=== PATIENT | female | born 1950 | race Caucasian/White ===

== ENCOUNTER → 2021-03-23 11:08 | Outpatient (BNVA) | payer OTHER, SELFPAY | PROVIDERS: PCP Internal Medicine; Visit Provider Hospitalist ==

== ENCOUNTER → 2021-04-16 13:51 | Outpatient (REF) | payer OTHER, SELFPAY | LOC: HO.SL 13:51 | PROVIDERS: PCP Internal Medicine; Visit Provider Hospitalist | DX: G47.33 Obstructive sleep apnea (adult) (pediatric) (principal) | CPT/HCPCS: 95806 ==

== ENCOUNTER → 2021-05-14 14:33 | Outpatient (BNVA) | payer OTHER, SELFPAY | PROVIDERS: PCP Internal Medicine; Visit Provider Hospitalist ==

== ENCOUNTER 2025-01-11 13:07 | Outpatient (AMB) | payer OTHER, SELFPAY ==
--- NOTE | 2025-01-11 13:14 | A.OFFVIS_ITS ---
Vital Signs 01/11/25 13:15 Height 5 ft 6 in Weight 191 lb BMI 30.8 BP 118/68 Blood Pressure Location Lt brachial Position Sitting Pulse 67 Pulse Source Pulse Oximeter Pulse Oximetry (%) 97 Oxygen Delivery Method Room Air Intake Visit Reasons: Sleep apnea Physician Scientist Required: No Allergies No Known Allergies Allergy (Verified 01/11/25 13:18) HPI Comments Details: The patient is a 74-year-old woman with a known history of obstructive sleep apnea, asthma in addition to cardiac arrhythmias. She was diagnosed with CPAP many years ago and had been on CPAP. However she start using several years ago. She has been describing worsening daytime drowsiness. Her Birmingham score is elevated 24. She says she falls asleep all the time. In addition to that she recently has been having more issues with her heart. She has been diagnosed with atrial fibrillation and other cardiac arrhythmias. She is currently getting medical therapy for that. She used to get CPAP supplies through her [employer] company, [employer]. This point we did call [employer] and we confirmed that she is not active. With worsening daytime drowsiness and her worsening cardiac condition the patient needs to have a repeat sleep study in order to establish her again with the [employer] company and start her back on CPAP. In the meantime the patient also suffers from asthma. She has been stable for many years. She does have a rescue inhaler that she carries in case she needs to use it. Typically she does not use it more than twice a month or less. 05/14/2021 the patient is here for a pulmonary follow-up visit. She continues to have significant daytime drowsiness. She has also been noticing increasing palpitations and fluttering of her chest. She does follow up closely with cardiology. She did undergo a home sleep study. It demonstrated that she has severe sleep apnea with an AHI greater than 30. she understands the severity of this. She understands that untreated severe sleep apnea can result in significant cardiovascular and cerebrovascular disease. therefore, we will start her on APAP therapy as well as possible. The patient had been on CPAP in the past. However, now she understands the importance in the seriousness of the matter. In regards of her asthma the patient continues use her Advair inhaler. She has not require her short-acting beta agonist. She has not required her nebulizer therapy. She understands that she needs to minimize the use of beta agonists due to her significant atrial fibrillation. We did briefly review the home sleep study and did say that heart rate did increase to 196 beats per minute. But after looking at the data it appears that it may have been just an artifact a however, when she is situated with her PAP therapy we can always perform an overnight oximetry to make sure that that is stable. 01/11/2025 the patient is here coming in as a new patient again since it has been more than 4 years since the last appointment. She was initially set up with CPAP although she could not tolerate it well. She also has a history of asthma in atrial fibrillation. The patient's condition changed early in 2024 when she underwent an elective fusion of her back. Surgery went well but then after she developed pneumonia. After the pneumonia the patient developed worsening respiratory complaints and went back to the hospital sometime in November. She was diagnosed with congestive heart failure. At the time she did have a CT scan of the chest which was personally by me demonstrating mosaic pattern likely from her volume overload status and vascular congestion. In addition to that she had a 7 mm left-sided pulmonary nodule. I did compare the CAT scan to a previous CAT scan she had from 2022 which she did not have any nodular densities. Therefore this is a new finding. She is already scheduled to have a CT scan repeated 6 months from the last. In the meantime the patient to start using her CPAP. She does use [employer] in [place] for her supplies. For better with a nasal mask along with a chinstrap in order for her to start using her machine regularly. Will request additional supplies. Not sure if she is going to need another sleep study to get become active. She does have significant cardiovascular risk factors and therefore using the CPAP is very important. I did try to provide her fullface mask but I did not have 1 in the office so therefore he will she will try the nasal mask with chinstrap consider an F30 small. She has a hard time tolerating the fullface mask and altogether. The patient will come back in couple months with her CPAP machine so we can assess. She will continue using her respiratory inhalers as prescribed and if any issues arise she will call for an earlier assessment. [facility] Medical History (Updated 03/23/21 @ 12:30 by Faisal Gutierrez MD) Asthma NANCIE (obstructive sleep apnea) Atrial fibrillation Social History Patient Tobacco Use Status: Former Tobacco user Tobacco use type: Cigarette Years Smoked: 17 years Review of Systems Const Reports daytime sleepiness, Denies night sweats, Reports snoring and Reports stops breathing during sleep ENT Denies change in voice, Denies lip swelling, Denies mouth pain, Reports nasal congestion, Reports nasal discharge and Denies tongue swelling Card Denies chest pain, Reports irregular heart rhythm and Reports palpitations Resp Reports cough and Reports snoring GI Denies abdominal pain Musc Denies no additional complaints and Reports other (Raynaud's) Neuro Denies Neuro-related abnormal movements Psych Denies no additional complaints Endo Reports palpitations Gennaro/Lymph Denies easy bleeding and Denies lymphadenopathy Aller/Immun Denies lip swelling and Denies tongue swelling Physical Exam Vital Signs: Last Vital Signs Pulse 67 01/11/25 13:15 BP 118/68 01/11/25 13:15 Pulse Ox 97 01/11/25 13:15 Oxygen Delivery Method Room Air 01/11/25 13:15 BMI result Body Mass Index 30.8 Const General: alert Neck Neck: Yes normal visual inspection, Yes full ROM and Yes no lymphadenopathy Chest Chest palpation & inspection: normal inspection of the chest Resp Auscultation: diminished lung sounds Cardio Rate: tachycardic Rhythm: abnormal rhythm Heart sounds: S1 normal heart sound present and S2 normal heart sound present Peripheral pulses: other (raynauds) GI Palpation (GI): Soft to palpation and nontender Auscultation: normal bowel sounds Skin General skin exam: rashes and/or lesions noted Assessment & Plan Assessment & Plan (1) Asthma: Code(s): J45.909 - Unspecified asthma, uncomplicated Category: Medical Qualifiers: Asthma complication type: uncomplicated Asthma persistence: intermittent Asthma severity: mild Qualified Code(s): J45.20 - Mild intermittent asthma, uncomplicated (2) NANCIE (obstructive sleep apnea): Code(s): G47.33 - Obstructive sleep apnea (adult) (pediatric) Category: Medical (3) Atrial fibrillation: Code(s): I48.91 - Unspecified atrial fibrillation Category: Medical Qualifiers: Atrial fibrillation type: unspecified chronic Qualified Code(s): I48.20 - Chronic atrial fibrillation, unspecified Plan ADAMA as needed Continue Advair continue APAP, Airsense 11 will trial p10 with chin strap. She will use her PAP therapy >4hours/night. Once she can demonstrate >70% use, then she can restart getting supplies though her [employer] [facility] f/u 2-3 months Coding Level of Care Code Est Pt Level 4 (70755) Diagnoses Mild intermittent asthma without complication J45.20 Asthma complication type: uncomplicated Asthma persistence: intermittent Asthma severity: mild NANCIE (obstructive sleep apnea) G47.33 Chronic atrial fibrillation I48.20 Atrial fibrillation type: unspecified chronic Time Spent (min) 18
[2025-01-11 13:15] VITALS: BP 118/68; PULSE 67; O2SAT 97; BMI 30.8
== END 2025-01-11 13:46 | disposition home or self-care (01) ==
LOC: HO.HPS 13:08
PROVIDERS: PCP Internal Medicine; Referring Provider Internal Medicine; Visit Provider Hospitalist
DX: J45.20 Mild intermittent asthma, uncomplicated (principal); G47.33 Obstructive sleep apnea (adult) (pediatric); I48.20 Chronic atrial fibrillation, unspecified
CPT/HCPCS: 99214

== ENCOUNTER → 2025-01-11 13:07 | Outpatient (BNVA) | payer OTHER, SELFPAY | PROVIDERS: PCP Internal Medicine; Referring Provider Internal Medicine; Visit Provider Hospitalist ==